=== PATIENT | male | born 1970 | race African-American/Black ===

== ENCOUNTER 2018-01-26 09:51 | Emergency (ER) | payer OTHER ==
[~2018-01-26] VITALS: Ht 170.2 cm; Wt 63.5 kg
[2018-01-26] MEDS ORDERED: CLEOCIN HCL300 MG PO (13:57)
[2018-01-26] MEDS ORDERED: HYDROCODONE-AP1 EAC6 PO (13:58)
[2018-01-26 14:29] VITALS: BP 129/82
== END 2018-01-26 14:30 | disposition home or self-care (01) ==
LOC: M.ERS 09:51
DX: S62.622A Displaced fracture of middle phalanx of right middle finger, initial encounter for closed fracture (principal); S61.212A Laceration without foreign body of right middle finger without damage to nail, initial encounter; W20.8XXA Other cause of strike by thrown, projected or falling object, initial encounter; Y93.89 Activity, other specified; Y92.89 Other specified places as the place of occurrence of the external cause; Y99.8 Other external cause status